=== PATIENT | male | born 1945 | race Caucasian/White ===

== ENCOUNTER → 2016-10-30 | Outpatient (CLI) | payer OTHER ==
--- NOTE | 2016-10-30 11:40 | DIAGNOSTIC IMAGING REPORT ---
PROCEDURE: MR LUMBAR SPINE W/O CONTRAST INDICATION: LOW BACK PAIN, initial encounter TECHNIQUE: Noncontrast T1, T2, and STIR sagittal images. T1 and T2 axial images. COMPARISON: None. FINDINGS: Grade 1 L1-2 anterolisthesis. No fracture. Multiple bony hemangiomas versus focal fatty infiltration. Mild L1-2 disc bulge with adjacent band-like area of increased T2 and decreased T1 signal suggestive of edema secondary to degenerative changes. Mild spur formation of the lumbar spine with severe L5-S1 disc space narrowing. Normal conus. L1-2: Desiccation of the disc with a mild broad-based disc bulge. Mild facet arthropathy. No foraminal or spinal stenosis. L2-3: Desiccation of the disc with a small broad-based disc bulge. Mild facet arthropathy. No foraminal or spinal stenosis. L3-4: Desiccation of the disc with a mild broad-based disc bulge. No foraminal or spinal stenosis. L4-5: Desiccation of the disc with a mild broad-based disc bulge and mild facet arthropathy. No foraminal or spinal stenosis. L5-S1: Severe disc space narrowing with a mild broad-based disc bulge/spur complex resulting in mild right and moderate left foraminal stenosis. No spinal stenosis. IMPRESSION: 1. Degenerative changes with grade 1 L1-2 anterolisthesis 2. Severe L5-S1 disc space narrowing with mild right and moderate left foraminal stenosis.
== END ==
LOC: MRI SRH 10:26
DX: M51.36 Other intervertebral disc degeneration, lumbar region (principal); M43.16 Spondylolisthesis, lumbar region; M48.07 Spinal stenosis, lumbosacral region